=== PATIENT | male | born 1995 | race Caucasian/White ===

== ENCOUNTER 2017-07-28 01:40 | Inpatient (IN) | payer MEDICAID, OTHER ==
--- NOTE | 2017-07-28 02:21 | ED ---
Psych HPI - General Chief Complaint: Psychiatric Symptoms Stated Complaint: Mental Health Time Seen by Provider: 07/28/17 01:49 Source: patient, EMS Mode of arrival: EMS - History of Present Illness Initial Comments: 21-year-old male patient presents to the emergency department today for evaluation of suicidal ideation. Patient was found by the [employer]'s [employer] on an overpass contemplating jumping. Patient states he has been increasingly depressed over the last couple of days. He is not very forthcoming with the reasons for his depression. Patient states he is currently still feeling suicidal. He denies any homicidal ideation. States he was drinking alcohol today. He denies any street drug use. Denies any history of suicide attempt. States he did have counseling in the past but it did not seem to help. Denies ever having a mental health admission. Denies any current physical symptoms or concerns. - Related Data Allergies Allergy/AdvReac Type Severity Reaction Status Date / Time Penicillins Allergy Rash/Hives Verified 07/28/17 01:58 Review of Systems ROS Statement: Those systems with pertinent positive or pertinent negative responses have been documented in the HPI. ROS Other: All systems not noted in ROS Statement are negative. Past Medical History Past Medical History: No Reported History History of Any Multi-Drug Resistant Organisms: None Reported Additional Past Surgical History / Comment(s): bilateral ear surgery. birthmark removed. Past Psychological History: Depression Smoking Status: Former smoker Past Alcohol Use History: None Reported Past Drug Use History: None Reported General Exam Limitations: no limitations General appearance: alert, in no apparent distress, other (This is a well- developed, well-nourished adult male patient in no acute distress. Vital signs upon presentation are temperature 97.0F, pulse 92, respirations 20, blood pressure 161/84, pulse ox 100% on room air.) Eye exam: Present: normal appearance, PERRL, EOMI. Absent: scleral icterus, conjunctival injection, periorbital swelling ENT exam: Present: normal exam, normal oropharynx, mucous membranes moist Respiratory exam: Present: normal lung sounds bilaterally. Absent: respiratory distress, wheezes, rales, rhonchi, stridor Cardiovascular Exam: Present: regular rate, normal rhythm, normal heart sounds. Absent: systolic murmur, diastolic murmur, rubs, gallop, clicks GI/Abdominal exam: Present: soft, normal bowel sounds. Absent: distended, tenderness, guarding, rebound, rigid Neurological exam: Present: alert, oriented X3, CN II-XII intact Psychiatric exam: Present: normal affect, normal mood Skin exam: Present: warm, dry, intact, normal color. Absent: rash Course Vital Signs 07/28/17 01:41 Temperature 97 F L Pulse Rate 92 Respiratory 20 Rate Blood Pressure 161/84 O2 Sat by Pulse 100 Oximetry Medical Decision Making - Medical Decision Making 21-year-old male patient presented to the emergency department today expressing suicidal ideations. Patient was seen and evaluated by emergency psych services who feels he would benefit from inpatient admission at this time. Patient will be transferred to the mental unit. Disposition Clinical Impression: Depression, Suicidal ideations Disposition: TRANSFER TO PSYCH HOSP/UNIT - Out of Hospital Transfer - Req. Specs Out of Hospital Transfer - Requested Specifics[facility]
[2017-07-28 03:58] VITALS: RESP 16
[2017-07-28 04:29] VITALS: BMI 25.4
[2017-07-28] MEDS ORDERED: MAG HYDROX/AL HYDROX/SIMETH 30 ML CUP PO PRN (05:16)
[2017-07-28] MEDS ORDERED: ACETAMINOPHEN TAB 325 MG TAB PO PRN (05:16)
[2017-07-28] MEDS ORDERED: MAGNESIUM HYDROXIDE 2,400 MG/10 ML CUP PO PRN (05:16)
[2017-07-28] MEDS ORDERED: LORazepam 1 MG TAB PO PRN (05:16)
--- NOTE | 2017-07-28 07:20 | P.MDCNMH ---
History of Present Illness H&P Date: 07/28/17 Chief Complaint: Medical management 21-year-old male with no significant past medical history. Was brought into the hospital by police department as patient found attempting suicide by jumping off the bridge. Patient admitted to suicidal ideation he had no history of suicidal attempts in the past. He claims that he's been feeling very depressed hopeless however he did not go into details over why he is feeling like this he just said life is hard. He reports some runny nose and sore throat for a couple days now otherwise denies any coughing chest pain denies any shortness of breath denies any fevers or chills. Review of Systems Constitutional: Patient denies fever, denies chills, denies night sweating, denies significant weight changes Eyes: Patient denies visual changes, denies eye pain ENT: Patient denies ear pain, reports upper respiratory infection symptoms Cardiovascular: Patient denies chest pain, denies exertional dyspnea, denies peripheral leg edema, denies orthopnea, denies paroxysmal nocturnal dyspnea Respiratory:Patient denies cough, denies wheezing, denies shortness of breath Gastrointestinal: Patient denies diarrhea, denies constipation, denies nausea , denies vomiting, denies abdominal pain Genitourinary: Patient denies dysuria, denies hematuria, denies changes in urinary habits, denies genital lesions Musculoskeletal: Patient denies muscle pain, denies joint pain Psychiatric: Patient reports depressed mood, reports suicidal ideation, denies anxiety Endocrine: Patient denies heat intolerance, denies cold intolerance, denies excessive thirst, denies polyuria Neurological: Patient denies focal neurologic deficits, denies weakness, denies numbness, denies tingling Hem/Lymphatic: Patient denies bleeding tendency, denies bruising, denies swollen lymph glands Allergic/Immun: Patient denies recent allergic reactions Skin: Patient denies rashes, denies pruritis, denies ulcers Past Medical History Past Medical History: No Reported History History of Any Multi-Drug Resistant Organisms: None Reported Past Surgical History: Adenoidectomy Additional Past Surgical History / Comment(s): bilateral ear surgery. birthmark removed from back of head. Past Anesthesia/Blood Transfusion Reactions: No Reported Reaction Past Psychological History: Depression Smoking Status: Former smoker Past Alcohol Use History: Daily Additional Past Alcohol Use History / Comment(s): Patient states for the past two weeks he has been drinking 1 to 2 drinks daily of alcohol. Past Drug Use History: None Reported - Past Family History Father Family Medical History: No Reported History Mother Family Medical History: Musculoskeletal Disorder Brother(s) Family Medical History: No Reported History Sister(s) Additional Family Medical History / Comment(s): Stomach disorder Medications and Allergies Home Medications Medication Instructions Recorded Confirmed Type No Known Home Medications [No 07/28/17 07/28/17 History Known Home Medications] Allergies Allergy/AdvReac Type Severity Reaction Status Date / Time Penicillins Allergy Rash/Hives Verified 07/28/17 04:34 Physical Exam Vitals: Vital Signs Temp Pulse Pulse Resp BP BP Pulse Ox 07/28/17 03:57 97.5 F L 74 16 126/78 07/28/17 03:42 98.2 F 60 20 138/66 100 07/28/17 01:41 97 F L 92 20 161/84 100 Intake and Output 07/27/17 07/28/17 07/28/17 22:59 06:59 14:59 Other: Weight 87.288 kg Constitutional: No acute distress, conversant, pleasant Eyes: Anicteric sclerae, moist conjunctiva, no lid-lag Pupils equal round reactive to light ENMT: NC/AT Oropharynx clear, no erythema, no exudates Neck: Supple, FROM, no masses, or JVD No carotid bruits No thyromegaly Lungs: Clear to auscultation Clear to percussion Normal respiratory effort, no accessory muscle use Cardiovascular: Heart regular in rate and rhythm, No murmurs, gallops, or rubs No peripheral edema Abdominal: Soft Nontender, no guarding, rebound or rigidity Abdomen moving with respiration Normoactive bowel sounds No hepatomegaly, No splenomegaly No palpable mass No abdominal wall hernia noted Skin: Normal temperature, tone, texture, turgor No induration No subcutaneous nodules No rash, lesions No ulcers Extremities: No digital cyanosis No clubbing Pedal pulses intact and symmetrical Radial pulses intact and symmetrical No calf tenderness Psychiatric: Alert and oriented to person, place and time Depressed affect Avoids eye contact Poor judgment Neuro Muscles Strength 5/5 in all 4 extremities Sensation to light touch grossly present throughout No focal sensory deficits Lymphatics: no palpable cervical or supraclavicular , or inguinal lymph nodes Cranial Nerve Examination - Cranial Nerves Cranial Nerve II- Optic: Intact Cranial Nerve III- Oculomotor: Intact Cranial Nerve IV- Trochlear: Intact Cranial Nerve V- Trigeminal: Intact Cranial Nerve - Abducens: Intact Cranial Nerve VII- Facial: Intact Cranial Nerve VIII- Auditory: Intact Cranial Nerve IX- Glossopharyngeal: Intact Cranial Nerve X- Vagus: Intact Cranial Nerve XI- Accessory: Intact Cranial Nerve XII- Hypoglossal: Intact Assessment and Plan Plan: 21-year-old male with no significant past medical history, has been feeling depressed over the past few days, was brought in by police department patient was found contemplating suicide by jumping off the bridge. Patient also complaining symptoms of common cold #Suicidal ideation #Depressed mood Management per psych Suicide precautions # common Cold symptoms Symptomatic control #DVT prophylaxis Low risk and ambulatory Thank you for allowing us to participate in the care of this patient. We will follow peripherally. Do not hesitate to contact us with questions. Someone can be reached from the [facility] hospitalist group at all hours of the day at [phone].
[2017-07-28 08:48] LABS: Basophils % (A) 0 %; Eosinophils # (A) 0.2 k/uL (0-0.7); Eosinophils % (A) 3 %; HCT 46.9 % (39.0-53.0); HGB 15.6 gm/dL (13.0-17.5); Lymphocytes # (A) 1.6 k/uL (1.0-4.8); Lymphocytes % (A) 18 %; MCH 28.5 pg (25.0-35.0); MCHC 33.2 g/dL (31.0-37.0); MCV 85.7 fL (80.0-100.0); Mean Platelet Volume 6.4; Monocytes # (A) 0.5 k/uL (0-1.0); Monocytes % (A) 5 %; Neutrophils # (A) 6.6 k/uL (1.3-7.7); Neutrophils % (A) 74 %; Platelet Count 224 k/uL (150-450); RBC 5.48 m/uL (4.30-5.90); RDW 12.6 % (11.5-15.5); WBC 8.9 k/uL (3.8-10.6)
[2017-07-28 09:06] LABS: ALT 101 U/L (21-72); AST 39 U/L (17-59); Albumin 4.6 g/dL (3.5-5.0); Alkaline Phosphatase 64 U/L (38-126); Anion Gap 13 mmol/L; Blood Urea Nitrogen 13 mg/dL (9-20); Calcium 9.8 mg/dL (8.4-10.2); Carbon Dioxide 30 mmol/L (22-30); Chloride 101 mmol/L (98-107); Glucose 104 mg/dL (74-99); Sodium 144 mmol/L (137-145); Total Bilirubin 1.1 mg/dL (0.2-1.3); Total Protein 7.1 g/dL (6.3-8.2)
[2017-07-28] MEDS: FLUoxetine HCL 10 MG CAP PO SCH (10:12)
--- NOTE | 2017-07-28 12:21 | P.HP ---
Psychiatric H&P - . H&P Date: 07/28/17 History & Physical: Allergies Allergy/AdvReac Type Severity Reaction Status Date / Time Penicillins Allergy Rash/Hives Verified 07/28/17 04:34 Vital Signs Temp 97.5 F L 07/28/17 03:57 Pulse 74 07/28/17 03:57 Resp 16 07/28/17 03:57 BP 126/78 07/28/17 03:57 Pulse Ox 100 07/28/17 03:42 Intake & Output 07/27/17 07/28/17 07/28/17 18:59 06:59 18:59 Weight 87.288 kg 87.288 kg Laboratory Last Values WBC 8.9 k/uL (3.8-10.6) 07/28/17 08:23 RBC 5.48 m/uL (4.30-5.90) 07/28/17 08:23 Hgb 15.6 gm/dL (13.0-17.5) 07/28/17 08:23 Hct 46.9 % (39.0-53.0) 07/28/17 08:23 MCV 85.7 fL (80.0-100.0) 07/28/17 08:23 MCH 28.5 pg (25.0-35.0) 07/28/17 08:23 MCHC 33.2 g/dL (31.0-37.0) 07/28/17 08:23 RDW 12.6 % (11.5-15.5) 07/28/17 08:23 Plt Count 224 k/uL (150-450) 07/28/17 08:23 Neutrophils % 74 % 07/28/17 08:23 Lymphocytes % 18 % 07/28/17 08:23 Monocytes % 5 % 07/28/17 08:23 Eosinophils % 3 % 07/28/17 08:23 Basophils % 0 % 07/28/17 08:23 Neutrophils # 6.6 k/uL (1.3-7.7) 07/28/17 08:23 Lymphocytes # 1.6 k/uL (1.0-4.8) 07/28/17 08:23 Monocytes # 0.5 k/uL (0-1.0) 07/28/17 08:23 Eosinophils # 0.2 k/uL (0-0.7) 07/28/17 08:23 Basophils # 0.0 k/uL (0-0.2) 07/28/17 08:23 Sodium 144 mmol/L (137-145) 07/28/17 08:23 Potassium 4.0 mmol/L (3.5-5.1) 07/28/17 08:23 Chloride 101 mmol/L (98-107) 07/28/17 08:23 Carbon Dioxide 30 mmol/L (22-30) 07/28/17 08:23 Anion Gap 13 mmol/L 07/28/17 08:23 BUN 13 mg/dL (9-20) 07/28/17 08:23 Creatinine 0.93 mg/dL (0.66-1.25) 07/28/17 08:23 Est GFR (CKD-EPI)AfAm >90 (>60 ml/min/1.73 sqM) 07/28/17 08:23 Est GFR (CKD-EPI)NonAf >90 (>60 ml/min/1.73 sqM) 07/28/17 08:23 Glucose 104 mg/dL (74-99) H 07/28/17 08:23 Calcium 9.8 mg/dL (8.4-10.2) 07/28/17 08:23 Total Bilirubin 1.1 mg/dL (0.2-1.3) 07/28/17 08:23 AST 39 U/L (17-59) 07/28/17 08:23 ALT 101 U/L (21-72) H 07/28/17 08:23 Alkaline Phosphatase 64 U/L (38-126) 07/28/17 08:23 Total Protein 7.1 g/dL (6.3-8.2) 07/28/17 08:23 Albumin 4.6 g/dL (3.5-5.0) 07/28/17 08:23 TSH 1.840 mIU/L (0.465-4.680) 07/28/17 08:23 07/28/17 12:06 Identification: Patient is a 21-year-old male who was brought in by the police [place]. History of Present Illness: Patient reports that he is always been depressed stating that depression started when he was in school but states that it worsened after high school. He states that the symptoms increased as well as the length of time that they lasted. After high school the patient enrolled in the [employer] something that he wanted to do as his family has a long history. 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 Patient states that he hated himself, felt like a failure had suicidal thoughts with no plan at that time and didn't do much for about a month. He states he was able to find a job and began working and reports that he went back to his old ways of dealing with his depressive symptoms which was to just "stuff it". States that he was able to go to work, he was sleeping and eating okay but felt worthless and hopeless and was socially withdrawn. He reports that he's been home for about 4 years now since his discharge from the and he struggles to hold jobs at times , getting bored with the jobs and changes frequently. He is currently worked at his job since February 2017 and states that he does get along with coworkers. He reports that his going to the overpass and considering suicide was brought on with the breakup of a girlfriend that he is had an on-and-off relationship with over the last 2 years. She broke off their relationship several weeks ago for reasons that she stated was they were too alike and she was not attracted to the patient anymore. Patient states that he is been trying to get in shape since the beginning of the year for her losing weight and exercising. He states that they still have been in touch and when he was on Facebook yesterday saw that she was messaging another man and he states like he felt that he had no reason to live, walked out of the house to the overpass and states that at the time he wanted to but in the end he just could not do it. He states he wanted to end the pain. He states that he is upset with himself because he always feels like a failure, screws things up and has hurt his family. He states his mother is the only one who knows that he is in the hospital at this time. Patient states that he has never attempted suicide in the past but has had suicidal thoughts. He states that he has never sought treatment although the suggested counseling he did not follow up with that. He has never sought treatment in the past for his symptoms of depression because he did not think that that was what the family would have endorsed. Patient endorses episodes of depression since his early teens and it increased in intensity and are lasting longer and more frequent. He states that he is unable to focus and concentrate, has crying spells and difficulty staying asleep. He feels tired and unmotivated as well as hopeless and worthless. He states his appetite recently has been decreased and he is lost more weight unintentionally. He states he gets no pleasure from any activities and is socially withdrawn. He states he feels depressed and states he currently is not having any suicidal thoughts. Patient does not endorse a history of manic episodes, psychotic symptoms or symptoms of anxiety. Patient does not endorse any obsessive-compulsive symptoms. Past Psychiatric History: Patient has no prior psychiatric treatment history either as an outpatient or an inpatient. Patient has no prior suicide attempts Past Medical/Surgical History: Patient reports other than the stress fracture when he was in basic training he has no medical problems, his only surgery was a tonsillectomy adenoidectomy. Family History: Patient reports that his father has a history of drug use and on his paternal side of his family was a history of alcohol and drug use. He reports no psychiatric history and no completed suicides in the family Social History: Patient was born and raised in [place] to parents who are both alive and they when the patient was 16 years of age. He completed high school and enlisted in the [employer] and was honorably discharged due to his depression. 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 Patient is currently living with his mother as well as his brother and sister. He states that since the divorce he has not had much interaction with his father , states his father wasn't around much as a kid due to his using drugs and was verbally abusive to his mother especially after the divorce. Patient states that he has no history of abuse. He reports that he has never been and has no children. He reports a recent breakup with a girlfriend of 2 years. He states that this girlfriend has a son that the patient is very close to. Substance Use History: Patient states that he lately has been drinking about 1 beer after work, he states that he quit using alcohol in May and prior to that less than what he is currently using. He denies any current or prior drug use history and states that he quit using tobacco products. Legal History: Patient has no legal history Mental status: Appearance/Attitude: Patient is casually dressed, makes little to no eye contact and is cooperative Behavior: Patient does not exhibit any psychomotor agitation, he does exhibit psychomotor slowing Speech/Language: Patient responds to questions slowly in a normal volume and rhythm and he is coherent Thought Process: Patient is goal-directed, no evidence of loose association or flight of ideas Thought Content: Patient denies auditory or visual hallucinations and no delusions or paranoid ideation or elicited. Patient reports having crying spells, feeling hopeless and worthless as though he is a failure, has failed his family. He states that he has having difficulty staying asleep feeling tired with little motivation or interest to do things and gets little to no pleasure from any activity. Patient reports that his appetite is poor and he has lost weight recently. Patient states he has trouble staying asleep. Suicidal/Homicidal Ideation: Patient reports no current suicidal ideation but states that yesterday after seeing his girlfriend messaging another male he felt that he had no reason to continue living, wanted the pain to and and thought about jumping off the overpass but could not bring himself to do it. He states that he does not want to and denies any current homicidal ideation Sensorium/Cognition: Patient is alert and oriented to person, place, and time and he reports difficulty with focus and concentration his recent and remote memory are grossly intact Mood/Affect: Patient's mood is depressed and his affect is blunted, patient is tearful throughout the bulk of the interview Insight/Judgment: Patient's insight and judgment are fair Intellectual Functioning: Patient's intellectual functioning appears average Strength/Weakness: Patient has job, housing/limited support system, limited coping strategies Assessment: Patient presents with a history of depression since his early teens , that is increased in intensity frequency and duration. His most recent episode has been over the last several weeks due to the with his girlfriend. Patient reports symptoms of crying spells, feeling hopeless and worthless as though he is been a failure, hurt his family and has screwed up things. Patient states he has had trouble sleeping, his appetite is been poor with weight loss. States he's having trouble focusing and concentrating and states he feels tired and worthless. Patient states that when he saw his girlfriend messaging another man on Facebook he left the home when to the overpass and considered suicide as a way to end his pain but was unable to do it. Patient has never sought treatment stating that he has bottled it up and kept moving. He was released from the due to his depression and did not follow up with recommendations for counseling. Patient has no prior history of suicide attempts and states he's had suicidal thoughts in the past but with no plan. Patient does not endorse any symptoms of johnny, psychotic symptoms, anxiety symptoms currently or in the past. Admission Diagnosis: Major depressive disorder, recurrent, severe Plan: Patient was admitted on a voluntary basis, routine observation in group and activity therapy were ordered. Patient had routine laboratory studies ordered as well as a medical consultation. Patient and I discussed the diagnosis of major depressive disorder as well as the treatment for this. Patient and I discussed the use and side effects of Prozac and will begin the patient on Prozac 10 mg in the morning. Patient was encouraged to attend groups and activities. Patient was encouraged to notify staff should he feel overwhelmed with suicidal thoughts. Patient requires inpatient treatment to stabilize his mood.
[2017-07-29] MEDS: FLUoxetine HCL 10 MG CAP PO SCH (08:02)
--- NOTE | 2017-07-29 11:39 | P.PN ---
Progress Note - Text Progress Note Date: 07/29/17 Interval History: Patient is a 21-year-old male who was seen today and he reports that the crying spells have decreased somewhat. Patient states that he slept fairly well last evening. He reports no current suicidal ideation and states that he's been trying to attend groups and activities. Patient reported that he visited with his mother last evening and that went well. He reported that he is feeling well enough to leave the hospital. He reported no side effects from the medication. 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 Mental Status: Appearance/Attitude: Patient is casually dressed, makes intermittent eye contact and appears sad and is cooperative. Behavior: Patient does not exhibit any psychomotor agitation was still some evidence of some psychomotor slowing. Speech/Language: Patient's speech remains slowed and deliberate, he is coherent Thought Process: Patient is goal-directed there is no evidence of loose association or flight of ideas Thought Content: Patient denies any auditory or visual hallucinations and no delusions or paranoid ideation or elicited. Patient states that he still feeling depressed, that the crying spells are less frequent feels ready to leave the hospital stating that the medications have worked. Patient reports that he is eating well and has sleep was restful. Patient reports not feeling as worthless or as hopeless as he was on admission. Suicidal/Homicidal Ideation: Patient denies any current suicidal or homicidal ideation Sensorium/Cognition: Patient is alert and oriented to person, place, and time and his recent and remote memory are grossly intact. Mood/Affect: Patient's mood is depressed and his affect is blunted Insight/Judgment: Patient's insight and judgment are fair Assessment: Patient reports that he is feeling better and wondered if he could be discharged today. Patient reports no further suicidal ideation and states that the crying spells have decreased. Patient continues to appear depressed and slightly slowed, he reports still feeling depressed. He states he is not feeling as worthless or hopeless as he was on admission. Patient reports no side effects from the medication. Patient has been attending some groups and activities. Patient requested that his pig lead melter helper be able to visit. Plan: patient will continue on Prozac 10 mg and on Tuesday morning and will be increased to 20 mg. The order for the increase in Prozac as already been written. Patient and I discussed continuing to stay in the hospital to further treat his depressive symptoms and evaluate his response to an increase in the Prozac on Tuesday. Patient was encouraged to continue to attend groups and activities and participate. She continues to require hospitalization to further stabilize his mood.
[2017-07-30] MEDS: FLUoxetine HCL 10 MG CAP PO SCH (08:00)
--- NOTE | 2017-07-30 18:52 | P.PN ---
Progress Note - Text Progress Note Date: 07/30/17 Patient was seen today. He reports feeling better. He states he is able to carry on conversations without breaking down crying. He reports being complimented with his medications. He states that the medications are definitely helping him. States he feels comfortable talking about his issues in street of sucking it up or bottling up. He reports good sleep and appetite. Reports going to all his groups. 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 21-year-old male. He appeared in good grooming and hygiene. He is pleasant and cooperative. No abnormal movements noted. He maintains good eye contact. His speech and thought processes are goal directed. His mood is reported as okay and affect constricted. He denies current auditory or visual hallucinations. Denies paranoia. He is alert and oriented 4. He denies suicidal or homicidal ideations. Insight and judgment are improving. Plan: Reports good response with Prozac. continue on Prozac 10 mg and on Tuesday morning and will be increased to 20 mg. continue to monitor for safety and encourage participation in the groups.
[2017-07-31] MEDS: FLUoxetine HCL 20 MG CAP PO SCH (08:06)
--- NOTE | 2017-07-31 17:46 | P.PN ---
Progress Note - Text Progress Note Date: 07/31/17 Patient was seen today. He reports to have recieved 20mg of prozac THIS MORNING. He reports medications are helping him. He reports he is able to socialize well. Denies crying spells. He reports good sleep and appetite. Reports going to all his groups. 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 21-year-old male. He appeared in good grooming and hygiene. He is pleasant and cooperative. No abnormal movements noted. He maintains good eye contact. His speech and thought processes are goal directed. His mood is reported as better and affect constricted. He denies current auditory or visual hallucinations. Denies paranoia. He is alert and oriented 4. He denies suicidal or homicidal ideations. Insight and judgment are improving. Plan: continue on Prozac 20 mg po qday. continue to monitor for safety and encourage participation in the groups.
[2017-08-01 06:41] VITALS: BP 109/61; PULSE 72; TEMP 97.9
[2017-08-01] MEDS: FLUoxetine HCL 20 MG CAP PO SCH (08:30)
--- NOTE | 2017-08-01 12:51 | P.DS ---
Providers Date of admission: 07/28/17 03:34 Expected date of discharge: 08/01/17 Attending physician: Chrissy Acosta MD Consults: 07/28/17 05:16 Consult Physician Routine Consulting Provider: Brenda Physician Consult Reason/Comments: H and P with medical follow up Do you want consulting provider notified?: Yes Primary care physician: Stated None Hospital Course: Discharge Diagnosis: Major depressive disorder, recurrent, severe Reason for Admission: Patient is a 21-year-old male who was brought in by the police [place]. Patient reports that he is always been depressed stating that depression started when he was in school but states that it worsened after high school. He states that the symptoms increased as well as the length of time that they lasted. After high school the patient enrolled in the [employer] something that he wanted to do as his family has a long history. 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 Patient states that he hated himself, felt like a failure had suicidal thoughts with no plan at that time and didn't do much for about a month. He states he was able to find a job and began working and reports that he went back to his old ways of dealing with his depressive symptoms which was to just "stuff it". States that he was able to go to work, he was sleeping and eating okay but felt worthless and hopeless and was socially withdrawn. He reports that he's been home for about 4 years now since his discharge from the and he struggles to hold jobs at times, getting bored with the jobs and changes frequently. He is currently worked at his job since February 2017 and states that he does get along with coworkers. He reports that his going to the [employer] and considering suicide was brought on with the breakup of a girlfriend that he is had an on-and-off relationship with over the last 2 years. She broke off their relationship several weeks ago for reasons that she stated was they were too alike and she was not attracted to the patient anymore. Patient states that he is been trying to get in shape since the beginning of the year for her losing weight and exercising. He states that they still have been in touch and when he was on Facebook yesterday saw that she was messaging another man and he states like he felt that he had no reason to live, walked out of the house to the overpass and states that at the time he wanted to but in the end he just could not do it. He states he wanted to end the pain. He states that he is upset with himself because he always feels like a failure, screws things up and has hurt his family. He states his mother is the only one who knows that he is in the hospital at this time. Patient states that he has never attempted suicide in the past but has had suicidal thoughts. He states that he has never sought treatment although the suggested counseling he did not follow up with that. He has never sought treatment in the past for his symptoms of depression because he did not think that that was what the family would have endorsed. Patient endorses episodes of depression since his early teens and it increased in intensity and are lasting longer and more frequent. He states that he is unable to focus and concentrate, has crying spells and difficulty staying asleep. He feels tired and unmotivated as well as hopeless and worthless. He states his appetite recently has been decreased and he is lost more weight unintentionally. He states he gets no pleasure from any activities and is socially withdrawn. He states he feels depressed and states he currently is not having any suicidal thoughts. Patient does not endorse a history of manic episodes, psychotic symptoms or symptoms of anxiety. Patient does not endorse any obsessive-compulsive symptoms. Mental status on Admission: Appearance/Attitude: Patient is casually dressed, makes little to no eye contact and is cooperative Behavior: Patient does not exhibit any psychomotor agitation, he does exhibit psychomotor slowing Speech/Language: Patient responds to questions slowly in a normal volume and rhythm and he is coherent Thought Process: Patient is goal-directed, no evidence of loose association or flight of ideas Thought Content: Patient denies auditory or visual hallucinations and no delusions or paranoid ideation or elicited. Patient reports having crying spells, feeling hopeless and worthless as though he is a failure, has failed his family. He states that he has having difficulty staying asleep feeling tired with little motivation or interest to do things and gets little to no pleasure from any activity. Patient reports that his appetite is poor and he has lost weight recently. Patient states he has trouble staying asleep. Suicidal/Homicidal Ideation: Patient reports no current suicidal ideation but states that yesterday after seeing his girlfriend messaging another male he felt that he had no reason to continue living, wanted the pain to and and thought about jumping off the overpass but could not bring himself to do it. He states that he does not want to and denies any current homicidal ideation Sensorium/Cognition: Patient is alert and oriented to person, place, and time and he reports difficulty with focus and concentration his recent and remote memory are grossly intact Mood/Affect: Patient's mood is depressed and his affect is blunted, patient is tearful throughout the bulk of the interview Insight/Judgment: Patient's insight and judgment are fair Hospital Course: Patient was admitted on a voluntary basis, placed on routine observation and group and activity therapy were ordered. Patient also had routine laboratory studies done and a medical consultation. Patient and I discussed his depression which she states that done on since his midteens, patient had never sought treatment for it and he reports that the episodes are becoming more intense, more frequent and lasting longer. Patient was agreeable to medication and was begun on 10 mg of Prozac which was titrated to a dose of 20 mg in the morning. Patient attended groups and activities and found it helpful, he reported his crying spells began to decrease in frequency and eventually stopped. 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 Patient reported he was not longer having suicidal thoughts and no longer felt hopeless or worthless. He reports he was no longer having crying spells and had been sleeping and eating well. He states that he had a more positive outlook and was not focused on the breakup with his girlfriend. He reported that he was attending groups and activities and had found them very helpful. Patient reported no side effects from the medication and felt he was ready for discharge. Allergies Penicillins Allergy (Verified 07/28/17 04:34) Rash/Hives Laboratory Last Values WBC 8.9 k/uL (3.8-10.6) 07/28/17 08:23 RBC 5.48 m/uL (4.30-5.90) 07/28/17 08:23 Hgb 15.6 gm/dL (13.0-17.5) 07/28/17 08:23 Hct 46.9 % (39.0-53.0) 07/28/17 08:23 MCV 85.7 fL (80.0-100.0) 07/28/17 08:23 MCH 28.5 pg (25.0-35.0) 07/28/17 08:23 MCHC 33.2 g/dL (31.0-37.0) 07/28/17 08:23 RDW 12.6 % (11.5-15.5) 07/28/17 08:23 Plt Count 224 k/uL (150-450) 07/28/17 08:23 Neutrophils % 74 % 07/28/17 08:23 Lymphocytes % 18 % 07/28/17 08:23 Monocytes % 5 % 07/28/17 08:23 Eosinophils % 3 % 07/28/17 08:23 Basophils % 0 % 07/28/17 08:23 Neutrophils # 6.6 k/uL (1.3-7.7) 07/28/17 08:23 Lymphocytes # 1.6 k/uL (1.0-4.8) 07/28/17 08:23 Monocytes # 0.5 k/uL (0-1.0) 07/28/17 08:23 Eosinophils # 0.2 k/uL (0-0.7) 07/28/17 08:23 Basophils # 0.0 k/uL (0-0.2) 07/28/17 08:23 Sodium 144 mmol/L (137-145) 07/28/17 08:23 Potassium 4.0 mmol/L (3.5-5.1) 07/28/17 08:23 Chloride 101 mmol/L (98-107) 07/28/17 08:23 Carbon Dioxide 30 mmol/L (22-30) 07/28/17 08:23 Anion Gap 13 mmol/L 07/28/17 08:23 BUN 13 mg/dL (9-20) 07/28/17 08:23 Creatinine 0.93 mg/dL (0.66-1.25) 07/28/17 08:23 Est GFR (CKD-EPI)AfAm >90 (>60 ml/min/1.73 sqM) 07/28/17 08:23 Est GFR (CKD-EPI)NonAf >90 (>60 ml/min/1.73 sqM) 07/28/17 08:23 Glucose 104 mg/dL (74-99) H 07/28/17 08:23 Calcium 9.8 mg/dL (8.4-10.2) 07/28/17 08:23 Total Bilirubin 1.1 mg/dL (0.2-1.3) 07/28/17 08:23 AST 39 U/L (17-59) 07/28/17 08:23 ALT 101 U/L (21-72) H 07/28/17 08:23 Alkaline Phosphatase 64 U/L (38-126) 07/28/17 08:23 Total Protein 7.1 g/dL (6.3-8.2) 07/28/17 08:23 Albumin 4.6 g/dL (3.5-5.0) 07/28/17 08:23 TSH 1.840 mIU/L (0.465-4.680) 07/28/17 08:23 Discharge Mental Status: Appearance/Attitude: Patient was casually dressed, made good eye contact and was cooperative. Behavior: Patient did not display any psychomotor agitation or retardation. Speech/Language: Patient's speech was spontaneous of normal volume and rhythm and he was coherent. Thought Process: Patient was goal-directed there is no evidence of loose association or flight of ideas. Thought Content: Patient denied any auditory or visual hallucinations and no delusions or paranoid ideation were elicited. Patient states he was no longer feeling hopeless or worthless and stated that he had plans for the future and was more positive about the future. Patient states he was eating and sleeping well. He reported no side effects from the medication. Patient states that he was no longer having crying spells and was better able to cope with the breakup with his girlfriend. Suicidal/Homicidal Ideation: Patient denied any current suicidal or homicidal ideation Sensorium/Cognition: Patient was alert and oriented to person, place, and time and his recent and remote memory were grossly intact. Mood/Affect: Patient's mood was less depressed and his affect was brighter Insight/Judgment: Patient's insight and judgment were intact Risk Assessment: Patient's risk for self-harm is low this patient has no prior suicide attempt history, is interested in treatment Discharge Plan: Patient will return to live with his mother, patient will continue on Prozac 20 mg in the morning and he will be given a prescription. Patient was encouraged to follow up with outpatient counseling and his medications. Patient was advised to avoid any drugs or alcohol. Patient will follow up with [facility]. Patient Condition at Discharge: Stable Plan - Discharge Summary New Discharge Prescriptions: New FLUoxetine HCL [PROzac] 20 mg PO DAILY #14 cap Discharge Medication List FLUoxetine HCL [PROzac] 20 mg PO DAILY #14 cap 08/01/17 [Rx] Follow up Appointment(s)/Referral(s): [facility] [Outside] - 1 Week (Pt. is to report to [facility] for intake between 8:30 a.m. and 3 p.m. no later than August 06, 2017. This is a walk-in appt. ) None,Stated [Primary Care Provider] - 1-2 days Patient Instructions/Handouts: Depression (DC), Suicide Prevention for Adults ( DC) Activity/Diet/Wound Care/Special Instructions: Activity and diet as tolerated. Avoid the use of street drugs and alcohol. Remove all firearms from home. Take all medications as prescribed. When you are in need of refills of your medication please contact your medical provider and/ or outpatient psychiatrist to have this done. Please go to scheduled outpatient appointment for aftercare. If symptoms return or become worse you can call the Crisis Line at and/or go to the nearest emergency room for an evaluation. Discharge Disposition: HOME SELF-CARE
== END 2017-08-01 13:36 | disposition home or self-care (01) | DRG 885 ==
LOC: EC 01:40 → 3MHU 03:34
PROVIDERS: ADMIT Psychiatry & Neurology Psychiatry; ATTEND Psychiatry & Neurology Psychiatry
DX: F33.2 Major depressive disorder, recurrent severe without psychotic features (principal); R45.851 Suicidal ideations; Z87.891 Personal history of nicotine dependence; Z88.0 Allergy status to penicillin; J00 Acute nasopharyngitis [common cold]; R63.4 Abnormal weight loss; Z68.25 Body mass index [BMI] 25.0-25.9, adult; Z81.1 Family history of alcohol abuse and dependence; Z81.3 Family history of other psychoactive substance abuse and dependence
CPT/HCPCS: 80053; 82075; 84443; 85025; 99285

== ENCOUNTER 2020-09-23 11:23 | Emergency (ER) | payer BC, OTHER ==
[2020-09-23 11:28] VITALS: BP 133/72; PULSE 61; RESP 16; TEMP 97.7
--- NOTE | 2020-09-23 12:17 | ED ---
Extremity Problem HPI - General Chief complaint: Extremity Problem,Nontraumatic Stated complaint: rt shoulder pain Time Seen by Provider: 09/23/20 11:29 Source: patient, RN notes reviewed Mode of arrival: ambulatory Limitations: no limitations - History of Present Illness Initial comments: Patient is a 24-year-old male complaining of right shoulder pain for the past one month. 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 He notes that he might just pulled a muscle in tried taking Motrin and resting it as much as he could. He notes that since the pain has continued he decided to come in to get evaluated. He notes that he does have full range of motion with some pain. He notes he has full sensation and strength in his right upper extremity. She notes that the pain gets worse the more he uses his shoulder with overhead type movements. He denied any other issues or complaints. He was in no apparent distress or pain while sitting up in bed during the exam interview. He denied any chest pain short of breath headache nausea vomiting diarrhea constipation fever fatigue chills weakness numbness tingling. - Related Data Previous Rx's Medication Instructions Recorded FLUoxetine HCL [PROzac] 20 mg PO DAILY #14 cap 08/01/17 Allergies Allergy/AdvReac Type Severity Reaction Status Date / Time Penicillins Allergy Rash/Hives Verified 09/23/20 11:25 Review of Systems ROS Statement: Those systems with pertinent positive or pertinent negative responses have been documented in the HPI. ROS Other: All systems not noted in ROS Statement are negative. Past Medical History Past Medical History: No Reported History History of Any Multi-Drug Resistant Organisms: None Reported Past Surgical History: Adenoidectomy Additional Past Surgical History / Comment(s): bilateral ear surgery. birthmark removed from back of head. Past Anesthesia/Blood Transfusion Reactions: No Reported Reaction Past Psychological History: Depression Smoking Status: Never smoker Past Alcohol Use History: None Reported Past Drug Use History: None Reported - Past Family History Father Family Medical History: No Reported History Mother Family Medical History: Musculoskeletal Disorder Brother(s) Family Medical History: No Reported History Sister(s) Additional Family Medical History / Comment(s): Stomach disorder General Exam Limitations: no limitations General appearance: alert, in no apparent distress Head exam: Present: atraumatic, normocephalic, normal inspection Eye exam: Present: normal appearance, PERRL, EOMI. Absent: scleral icterus, conjunctival injection, periorbital swelling Neck exam: Present: normal inspection Respiratory exam: Present: normal lung sounds bilaterally. Absent: respiratory distress, wheezes, rales, rhonchi, stridor Cardiovascular Exam: Present: regular rate, normal rhythm, normal heart sounds. Absent: systolic murmur, diastolic murmur, rubs, gallop, clicks Right Shoulder Exam: Present: normal inspection, full ROM, other (Negative kirsten test, positive lift off test.). Absent: tenderness, swelling, abrasion, laceration, ecchymosis, deformity, crepitus, dislocation, erythema Neurological exam: Present: alert, oriented X3 Psychiatric exam: Present: normal affect, normal mood Skin exam: Present: warm, dry, intact, normal color. Absent: rash Course Vital Signs 09/23/20 11:25 Temperature 97.7 F Pulse Rate 61 Respiratory 16 Rate Blood Pressure 133/72 O2 Sat by Pulse 100 Oximetry Medical Decision Making - Medical Decision Making 24-year-old male complaining of right shoulder pain for the past one month. X-ray the right shoulder ordered. Given clinical symptoms and x-ray findings most likely a rotator cuff injury. While patient follow-up with orthopedist. Case discussed with Dr. Pulido, patient can discharge home. - Radiology Data Radiology results: report reviewed, image reviewed Right shoulder x-ray: No acute fracture dislocation Disposition Clinical Impression: Rotator cuff injury Disposition: HOME SELF-CARE Condition: Stable Instructions (If sedation given, give patient instructions): Rotator Cuff Injury (ED) Additional Instructions: Please return to the Emergency Department if symptoms worsen or any other concerns. Follow-up with primary care as needed. Follow-up with orthopedist. Can take Tylenol 800 every 6 hours for pain control. Avoid overuse. Rest ice compress elevate. Is patient prescribed a controlled substance at d/c from ED?: No Referrals: None,Stated [Primary Care Provider] - 1-2 days Christian Anderson MD [STAFF PHYSICIAN] - 1-2 days Time of Disposition: 12:44
--- NOTE | 2020-09-23 12:33 | XR ---
EXAMINATION TYPE: XR shoulder complete RT DATE OF EXAM: 09/23/2020 CLINICAL HISTORY: Right shoulder pain TECHNIQUE: Three views of the right shoulder are obtained. COMPARISON: None. FINDINGS: There is no acute fracture/dislocation evident in the right shoulder. The acromioclavicul ar and glenohumeral joint spaces appear within normal limits. The visualized ribs are intact and unr emarkable. IMPRESSION: There is no acute fracture or dislocation in the shoulder.
== END 2020-09-23 13:17 | disposition home or self-care (01) ==
LOC: EC 11:23
DX: S46.001A Unspecified injury of muscle(s) and tendon(s) of the rotator cuff of right shoulder, initial encounter (principal); F32.9 Major depressive disorder, single episode, unspecified; Z88.0 Allergy status to penicillin; X50.0XXA Overexertion from strenuous movement or load, initial encounter; Y99.0 Civilian activity done for income or pay
CPT/HCPCS: 99283

== ENCOUNTER 2023-02-21 07:06 | Emergency (ER) | payer OTHER, BC ==
[2023-02-21 07:26] VITALS: TEMP 98
--- NOTE | 2023-02-21 07:34 | ED ---
General Adult HPI - General Chief complaint: Chest Pain Stated complaint: Chest Pain Time Seen by Provider: 02/21/23 07:17 Source: patient, RN notes reviewed Mode of arrival: ambulatory Limitations: no limitations - History of Present Illness Initial comments: Patient is a pleasant 27-year-old male presenting to the emergency department with concerns for chest discomfort. Onset of symptoms was around 5 AM. Patient was at work. Patient has discomfort left sternal region with movement. Discomfort occurs with exhaling also. Little bit with been healing. Discomfort is near resolved at this time. Patient has had similar symptoms a couple times previously. No associated dyspnea, nausea, or diaphoresis. - Related Data Previous Rx's Medication Instructions Recorded FLUoxetine HCL [PROzac] 20 mg PO DAILY #14 cap 08/01/17 Allergies Allergy/AdvReac Type Severity Reaction Status Date / Time Penicillins Allergy Rash/Hives Verified 02/21/23 07:16 Review of Systems ROS Statement: Those systems with pertinent positive or pertinent negative responses have been documented in the HPI. ROS Other: All systems not noted in ROS Statement are negative. Constitutional: Denies: fever Eyes: Denies: eye pain ENT: Denies: ear pain Respiratory: Denies: cough Cardiovascular: Reports: as per HPI, chest pain Endocrine: Denies: fatigue Gastrointestinal: Denies: abdominal pain Genitourinary: Denies: dysuria Musculoskeletal: Denies: back pain Skin: Denies: rash Neurological: Denies: weakness Past Medical History Past Medical History: No Reported History History of Any Multi-Drug Resistant Organisms: None Reported Past Surgical History: Adenoidectomy Additional Past Surgical History / Comment(s): bilateral ear surgery. birthmark removed from back of head. Past Anesthesia/Blood Transfusion Reactions: No Reported Reaction Past Psychological History: Depression Smoking Status: Former smoker Past Alcohol Use History: None Reported Past Drug Use History: None Reported - Past Family History Father Family Medical History: No Reported History Mother Family Medical History: Musculoskeletal Disorder Brother(s) Family Medical History: No Reported History Sister(s) Additional Family Medical History / Comment(s): Stomach disorder General Exam Limitations: no limitations General appearance: alert, in no apparent distress Head exam: Present: normocephalic Eye exam: Present: normal appearance Neck exam: Present: normal inspection Respiratory exam: Present: normal lung sounds bilaterally, chest wall tenderness (Mild left sternal) Cardiovascular Exam: Present: regular rate, normal rhythm GI/Abdominal exam: Present: soft. Absent: tenderness Back exam: Present: normal inspection Neurological exam: Present: alert Psychiatric exam: Present: normal affect, normal mood Skin exam: Present: normal color Course Vital Signs 02/21/23 02/21/23 02/21/23 07:14 08:00 09:00 Temperature 98 F Pulse Rate 79 80 81 Respiratory 20 16 16 Rate Blood Pressure 154/87 130/89 121/77 O2 Sat by Pulse 99 99 98 Oximetry EKG Findings - EKG Results: EKG: interpreted by ERMD, sinus rhythm, normal axis, normal QRS, normal ST/T Medical Decision Making - Medical Decision Making Heart score is 0 Was pt. sent in by a medical professional or institution (LUIS Terry, PULLEY MORTISER OPERATOR, urgent care, hospital, or senior living...) When possible be specific @ -Patient came from work Did you speak to anyone other than the patient for history (EMS, parent, family, police, friend...)? What history was obtained from this source @ -No Did you review nursing and triage notes (agree or disagree)? Why? @ -I reviewed and agree with nursing and triage notes Were old charts reviewed (outside hosp., previous admission, EMS record, old EKG, old radiological studies, urgent care reports/EKG's, senior living records)? Report findings @ -No old charts were reviewed Differential Diagnosis (chest pain, altered mental status, abdominal pain women, abdominal pain men, vaginal bleeding, weakness, fever, dyspnea, syncope, headache, dizziness, GI bleed, back pain, seizure, CVA, palpatations, mental health, musculoskeletal)? @ -Differential Chest Pain: Stable Angina, Unstable Angina, STEMI, NSTEMI Aortic Dissection, Pneumothorax, Musculoskeletal, Esophageal Spasm GERD, Cholecystitis, Pancreatitis, Zoster, this is not meant to be an all-inclusive list. EKG interpreted by me (3pts min.). @ -As above X-rays interpreted by me (1pt min.). @ -Chest x-ray shows no acute process CT interpreted by me (1pt min.). @ -None done U/S interpreted by me (1pt. min.). @ -None done What testing was considered but not performed or refused? (CT, X-rays, U/S, labs)? Why? @ -Sided CT of the chest however d-dimer is negative What meds were considered but not given or refused? Why? @ -None Did you discuss the management of the patient with other professionals (professionals i.e. , PA, PULLEY MORTISER OPERATOR, lab, RT, psych nurse, social media intern, pantograph setter, teacher, radio electronics officer, telephonic nurse case manager)? Give summary @ -No Was smoking cessation discussed for >3mins.? @ -No Was critical care preformed (if so, how long)? @ -No Were there social determinants of health that impacted care today? How? (Homelessness, low income, unemployed, alcoholism, drug addiction, transportation, low edu. Level, literacy, decrease access to med. care, alf, rehab)? @ -No Was there de-escalation of care discussed even if they declined (Discuss DNR or withdrawal of care, Hospice)? DNR status @ -No What co-morbidities impacted this encounter? (DM, HTN, Smoking, COPD, CAD, Cancer, CVA, ARF, Chemo, Hep., AIDS, mental health diagnosis, sleep apnea, morbid obesity)? @ -None Was patient admitted / discharged? Hospital course, mention meds given and r oute, prescriptions, significant lab abnormalities, going to OR and other pertinent info. @ -Patient reevaluated and resting comfortably in bed. Patient near symptom- free. Patient requesting discharge home. Patient and spouse believes symptoms are related to work. Patient advised no heavy lifting. Patient states he can return to work without restrictions. Patient is updated on results and need for follow-up. Heart score is 0. Patient has atypical symptoms. Patient is low risk. Undiagnosed new problem with uncertain prognosis? @ -No Drug Therapy requiring intensive monitoring for toxicity (Heparin, Nitro, In sulin, Cardizem)? @ -No Were any procedures done? @ -No Diagnosis/symptom? @ -Chest pain Acute, or Chronic, or Acute on Chronic? @ -Acute Uncomplicated (without systemic symptoms) or Complicated (systemic symptoms)? @ -default Side effects of treatment? @ -No Exacerbation, Progression, or Severe Exacerbation? @ -No Poses a threat to life or bodily function? How? (Chest pain, [place], [place], pneumonia, PE, COPD, DKA, ARF, appy, cholecystitis, CVA, Diverticulitis, Homicidal, Suicidal, threat to staff... and all critical care pts) @ -No - Lab Data Result diagrams: 02/21/23 07:43 02/21/23 07:43 Lab Results 02/21/23 02/21/23 02/21/23 Range/Units 07:43 07:43 07:43 WBC 7.9 (3.8-10.6) k/uL RBC 5.29 (4.30-5.90) m/uL Hgb 16.0 (13.0-17.5) gm/dL Hct 45.3 (39.0-53.0) % MCV 85.7 (80.0-100.0) fL MCH 30.2 (25.0-35.0) pg MCHC 35.3 (31.0-37.0) g/dL RDW 12.0 (11.5-15.5) % Plt Count 201 (150-450) k/uL MPV 6.4 Neutrophils % 67 % Lymphocytes % 21 % Monocytes % 4 % Eosinophils % 6 % Basophils % 1 % Neutrophils # 5.3 (1.3-7.7) k/uL Lymphocytes # 1.7 (1.0-4.8) k/uL Monocytes # 0.3 (0-1.0) k/uL Eosinophils # 0.5 (0-0.7) k/uL Basophils # 0.0 (0-0.2) k/uL PT 10.7 (10.0-12.5) sec INR 1.0 (<1.2) APTT 24.9 (22.0-30.0) sec D-Dimer <0.17 (<0.60) mg/L FEU Sodium 138 (137-145) mmol/L Potassium 4.0 (3.5-5.1) mmol/L Chloride 102 (98-107) mmol/L Carbon Dioxide 25 (22-30) mmol/L Anion Gap 11 mmol/L BUN 17 (9-20) mg/dL Creatinine 0.89 (0.66-1.25) mg/dL Est GFR (CKD-EPI)AfAm >90 (>60 ml/min/1.73 sqM) Est GFR (CKD-EPI)NonAf >90 (>60 ml/min/1.73 sqM) Glucose 98 (74-99) mg/dL Calcium 9.6 (8.4-10.2) mg/dL Magnesium 1.9 (1.6-2.3) mg/dL Total Bilirubin 0.8 (0.2-1.3) mg/dL AST 25 (17-59) U/L ALT 33 (4-49) U/L Alkaline Phosphatase 52 (38-126) U/L Troponin I (0.000-0.034) ng/mL Total Protein 6.8 (6.3-8.2) g/dL Albumin 4.3 (3.5-5.0) g/dL 02/21/23 Range/Units 07:43 WBC (3.8-10.6) k/uL RBC (4.30-5.90) m/uL Hgb (13.0-17.5) gm/dL Hct (39.0-53.0) % MCV (80.0-100.0) fL MCH (25.0-35.0) pg MCHC (31.0-37.0) g/dL RDW (11.5-15.5) % Plt Count (150-450) k/uL MPV Neutrophils % % Lymphocytes % % Monocytes % % Eosinophils % % Basophils % % Neutrophils # (1.3-7.7) k/uL Lymphocytes # (1.0-4.8) k/uL Monocytes # (0-1.0) k/uL Eosinophils # (0-0.7) k/uL Basophils # (0-0.2) k/uL PT (10.0-12.5) sec INR (<1.2) APTT (22.0-30.0) sec D-Dimer (<0.60) mg/L FEU Sodium (137-145) mmol/L Potassium (3.5-5.1) mmol/L Chloride (98-107) mmol/L Carbon Dioxide (22-30) mmol/L Anion Gap mmol/L BUN (9-20) mg/dL Creatinine (0.66-1.25) mg/dL Est GFR (CKD-EPI)AfAm (>60 ml/min/1.73 sqM) Est GFR (CKD-EPI)NonAf (>60 ml/min/1.73 sqM) Glucose (74-99) mg/dL Calcium (8.4-10.2) mg/dL Magnesium (1.6-2.3) mg/dL Total Bilirubin (0.2-1.3) mg/dL AST (17-59) U/L ALT (4-49) U/L Alkaline Phosphatase (38-126) U/L Troponin I <0.012 (0.000-0.034) ng/mL Total Protein (6.3-8.2) g/dL Albumin (3.5-5.0) g/dL Disposition Clinical Impression: Chest pain Disposition: HOME SELF-CARE Condition: Stable Instructions (If sedation given, give patient instructions): Chest Pain (ED) Additional Instructions: Please follow-up with primary care physician in the next day or 2 for recheck. Return for increased pain, difficulty breathing, worsening or changing symptoms or any other concerns. Avoid heavy lifting. Is patient prescribed a controlled substance at d/c from ED?: No Referrals: Flip Mcghee MD [STAFF PHYSICIAN] - 1-2 days Time of Disposition: 09:42
[2023-02-21 07:51] LABS: Basophils % (A) 1 %; Eosinophils # (A) 0.5 k/uL (0-0.7); Eosinophils % (A) 6 %; HCT 45.3 % (39.0-53.0); Lymphocytes # (A) 1.7 k/uL (1.0-4.8); Lymphocytes % (A) 21 %; MCH 30.2 pg (25.0-35.0); MCHC 35.3 g/dL (31.0-37.0); MCV 85.7 fL (80.0-100.0); Mean Platelet Volume 6.4; Monocytes # (A) 0.3 k/uL (0-1.0); Monocytes % (A) 4 %; Neutrophils # (A) 5.3 k/uL (1.3-7.7); Neutrophils % (A) 67 %; Platelet Count 201 k/uL (150-450); RBC 5.29 m/uL (4.30-5.90); WBC 7.9 k/uL (3.8-10.6)
[2023-02-21 08:04] LABS: ALT 33 U/L (4-49); AST 25 U/L (17-59); African American GFR (CKD) >90 (>60 ml/min/1.73 sqM); Albumin 4.3 g/dL (3.5-5.0); Alkaline Phosphatase 52 U/L (38-126); Anion Gap 11 mmol/L; Blood Urea Nitrogen 17 mg/dL (9-20); Calcium 9.6 mg/dL (8.4-10.2); Carbon Dioxide 25 mmol/L (22-30); Chloride 102 mmol/L (98-107); Glucose 98 mg/dL (74-99); Magnesium 1.9 mg/dL (1.6-2.3); Non-African American GFR(CKD) >90 (>60 ml/min/1.73 sqM); Sodium 138 mmol/L (137-145); Total Bilirubin 0.8 mg/dL (0.2-1.3); Total Protein 6.8 g/dL (6.3-8.2)
--- NOTE | 2023-02-21 08:21 | XR ---
EXAMINATION TYPE: XR chest 2V DATE OF EXAM: 02/21/2023 COMPARISON: NONE HISTORY: Chest pain TECHNIQUE: Frontal and lateral views of the chest are obtained. FINDINGS: There is no focal air space opacity. No evidence for pneumothorax. No pleural effusion. The cardiac silhouette size is within normal limits. The osseous structures are grossly intact. IMPRESSION: 1. No acute cardiopulmonary process.
[2023-02-21 08:57] LABS: Partial Thromboplastin Time 24.9 sec (22.0-30.0); Prothrombin Time 10.7 sec (10.0-12.5)
[2023-02-21 10:03] VITALS: BP 121/77; PULSE 81; RESP 16
== END 2023-02-21 09:51 | disposition home or self-care (01) ==
LOC: EC 07:06
DX: R07.89 Other chest pain (principal); F32.A Depression, unspecified; Z87.891 Personal history of nicotine dependence; Z79.899 Other long term (current) drug therapy; Z88.0 Allergy status to penicillin
CPT/HCPCS: 36415; 71046; 80053; 83735; 84484; 85025; 85379; 85610; 85730; 93005; 99285

== ENCOUNTER 2023-08-22 08:20 | Emergency (ER) | payer OTHER, BC ==
[2023-08-22 09:08] VITALS: RESP 16; TEMP 98.2
--- NOTE | 2023-08-22 10:38 | ED ---
Wound/Laceration HPI - General Chief Complaint: Wound/Laceration Stated Complaint: [facility],RT HAND LACERATION Time Seen by Provider: 08/22/23 10:36 Source: patient, RN notes reviewed Mode of arrival: ambulatory Limitations: no limitations - History of Present Illness Initial Comments: 27-year-old male presented to the ER with a chief complaint of right hand injury. Patient reports he was at work when a steel band broke and hit his hand. He states he is a laceration to his dorsal hand. He denies any limited range of motion or other injuries. Tetanus status unknown. Bleeding is controlled at this time. No other complaints. - Related Data Previous Rx's Medication Instructions Recorded FLUoxetine HCL [PROzac] 20 mg PO DAILY #14 cap 08/01/17 Allergies Allergy/AdvReac Type Severity Reaction Status Date / Time Penicillins Allergy Rash/Hives Verified 08/22/23 08:31 Review of Systems ROS Statement: Those systems with pertinent positive or pertinent negative responses have been documented in the HPI. ROS Other: All systems not noted in ROS Statement are negative. Past Medical History Past Medical History: No Reported History History of Any Multi-Drug Resistant Organisms: None Reported Past Surgical History: Adenoidectomy Additional Past Surgical History / Comment(s): bilateral ear surgery. birthmark removed from back of head. Past Anesthesia/Blood Transfusion Reactions: No Reported Reaction Past Psychological History: Depression Smoking Status: Former smoker Past Alcohol Use History: None Reported Past Drug Use History: None Reported - Past Family History Father Family Medical History: No Reported History Mother Family Medical History: Musculoskeletal Disorder Brother(s) Family Medical History: No Reported History Sister(s) Additional Family Medical History / Comment(s): Stomach disorder General Exam Limitations: no limitations General appearance: alert, in no apparent distress Respiratory exam: Present: normal lung sounds bilaterally. Absent: respiratory distress, wheezes, rales, rhonchi, stridor Cardiovascular Exam: Present: regular rate, normal rhythm, normal heart sounds. Absent: systolic murmur, diastolic murmur, rubs, gallop, clicks Extremities exam: Present: normal inspection, full ROM, normal capillary refill. Absent: tenderness, pedal edema, joint swelling, calf tenderness Skin exam: Present: other (1cm laceration to dorsal hand thenar webspace. no active bleeding. Full active ROM) Course Vital Signs 08/22/23 08/22/23 08:28 11:58 Temperature 98.2 F 98.2 F Pulse Rate 71 68 Respiratory 16 16 Rate Blood Pressure 133/83 128/80 O2 Sat by Pulse 97 100 Oximetry Procedures - Laceration Laceration #1 Consent Obtained: verbal consent Indication: laceration Site: hand Size (cm): 1 Description: linear Depth: simple, single layer Anesthetic Used: lidocaine 1% Anesthesia Technique: local infiltration Amount (mls): 2 Pre-repair: wound explored, irrigated extensively, deep structures intact Type of Sutures: nylon Size of Sutures: 4-0 Number of Sutures: 2 Technique: simple, interrupted Patient Tolerated Procedure: well, no complications Medical Decision Making - Medical Decision Making Was pt. sent in by a medical professional or institution (Dr. PA, MOVE COORDINATOR, urgent care, hospital, or care home...) When possible be specific @ -No Did you speak to anyone other than the patient for history (EMS, parent, family, police, friend...)? What history was obtained from this source @ -No Did you review nursing and triage notes (agree or disagree)? Why? @ -I reviewed and agree with nursing and triage notes Were old charts reviewed (outside hosp., previous admission, EMS record, old EKG, old radiological studies, urgent care reports/EKG's, care home records)? Report findings @ -No old charts were reviewed Differential Diagnosis (chest pain, altered mental status, abdominal pain women, abdominal pain men, vaginal bleeding, weakness, fever, dyspnea, syncope, headache, dizziness, GI bleed, back pain, seizure, CVA, palpatations, mental health, musculoskeletal)? @ -Laceration, abrasion, contusion, avulsion, foreign body this list is not meant to be all-inclusive EKG interpreted by me (3pts min.). @ -None X-rays interpreted by me (1pt min.). @ -None done CT interpreted by me (1pt min.). @ -None done U/S interpreted by me (1pt. min.). @ -None done What testing was considered but not performed or refused? (CT, X-rays, U/S, labs)? Why? @ -X-rays considered but not obtained as no focal bony tenderness. Patient has full active range of motion. What meds were considered but not given or refused? Why? @ -None Did you discuss the management of the patient with other professionals (professionals i.e. , PA, MOVE COORDINATOR, lab, RT, psych nurse, manager social media, divorce lawyer, teacher, chief accounting officer, case worker)? Give summary @ -No Was smoking cessation discussed for >3mins.? @ -No Was critical care preformed (if so, how long)? @ -No Were there social determinants of health that impacted care today? How? (Homelessness, low income, unemployed, alcoholism, drug addiction, transportation, low edu. Level, literacy, decrease access to med. care, care home, rehab)? @ -No Was there de-escalation of care discussed even if they declined (Discuss DNR or withdrawal of care, Hospice)? DNR status @ -No What co-morbidities impacted this encounter? (DM, HTN, Smoking, COPD, CAD, Cancer, CVA, ARF, Chemo, Hep., AIDS, mental health diagnosis, sleep apnea, morbid obesity)? @ -None Was patient admitted / discharged? Hospital course, mention meds given and route, prescriptions, significant lab abnormalities, going to OR and other pertinent info. @ -Discharge. 27-year-old male presented to the ER with chief complaint of a laceration. History and physical exam completed. Vitals stable. Patient no signs of distress and nontoxic-appearing. 1 cm none actively bleeding superficial laceration to right dorsal thenar web. Right upper extremity neurovascular intact. Laceration closed using 2 simple interrupted sutures. Tetanus updated. Suture care and return parameters discussed. Advised removal in 10 to 14 days. Patient discharged in stable condition with follow-up to PCP. Patient verbally expressed understanding and agreement with care plan. Case discussed with ED attending, Dr. Kay. Undiagnosed new problem with uncertain prognosis? @ -No Drug Therapy requiring intensive monitoring for toxicity (Heparin, Nitro, Insulin, Cardizem)? @ -No Were any procedures done? @ -Yes Diagnosis/symptom? @ -Laceration Acute, or Chronic, or Acute on Chronic? @ -Acute Uncomplicated (without systemic symptoms) or Complicated (systemic symptoms)? @ -Uncomplicated Side effects of treatment? @ -No Exacerbation, Progression, or Severe Exacerbation? @ -No Poses a threat to life or bodily function? How? (Chest pain, [place], [place], pneumonia, PE, COPD, DKA, ARF, appy, cholecystitis, CVA, Diverticulitis, Homicidal, Suicidal, threat to staff... and all critical care pts) @ -No Disposition Clinical Impression: Laceration Disposition: HOME SELF-CARE Condition: Stable Instructions (If sedation given, give patient instructions): Care For Your Stitches (DC) Additional Instructions: Have sutures removed in 10 to 14 days. Please keep area clean and dry. Return to the ER for any new or worsening concerns. Is patient prescribed a controlled substance at d/c from ED?: No Referrals: None,Stated [Primary Care Provider] - 1-2 days Forms: Area PCPs Time of Disposition: 11:28
[2023-08-22] MEDS: DIPH,PERTUS(ACELL)TETVAC-LF 0.5 ML VIAL IM ONE (11:01)
[2023-08-22] MEDS: LIDOCAINE 1% INJ 10MG/ML (20 ML MDV) SQ ONE (11:02)
[2023-08-22 12:22] VITALS: BP 128/80; PULSE 68
== END 2023-08-22 12:03 | disposition home or self-care (01) ==
LOC: EC 08:20
DX: S61.411A Laceration without foreign body of right hand, initial encounter (principal); Z88.0 Allergy status to penicillin; Z87.891 Personal history of nicotine dependence; Z23 Encounter for immunization; W22.8XXA Striking against or struck by other objects, initial encounter
CPT/HCPCS: 90715; 99282; 90471; 12001; J2001